=== PATIENT | female | born 1940 | race Caucasian/White ===

== ENCOUNTER 2021-11-09 07:29 | Inpatient (IN) ==
[~2021-11-09 07:29] MED LIST: Povidone-Iodine 45 ML, Sodium Chloride IRRigation 1,000 ML IR ONE; TOTAL JOINT MIXTURE (100ML) INTRAART ONE
[2021-11-09] MEDS ORDERED: *HR* Labetalol 20 MG/4 ML SYRINGE IVP PRN (08:17)
[2021-11-09] MEDS ORDERED: *HR* OxyCODONE Immed Rel 5 MG TABLET PO PRN ×3 (08:17→13:40)
[2021-11-09] MEDS ORDERED: *HR* HYDROmorphone PF 0.5 MG/0.5 ML SYRINGE IVP PRN (08:17)
[2021-11-09] MEDS ORDERED: CeFAZolin Syr 2,000MG/20 ML 2,000 MG/20 ML SYRINGE IVPB ONE (08:17)
[2021-11-09] MEDS ORDERED: Ondansetron 4 MG/2 ML VIAL IVP PRN ×3 (08:17→13:40)
[2021-11-09] MEDS ORDERED: Ringers Solution, Lactated 1,000 ML IVC SCH ×2 (08:30→12:30)
[2021-11-09] MEDS ORDERED: Famotidine 20 MG/2 ML VIAL IVP ONE (09:00)
[2021-11-09] MEDS ORDERED: Pregabalin 75 MG CAPSULE PO ONE (09:00)
[2021-11-09] MEDS ORDERED: Acetaminophen IV 1,000 MG/100 ML BAG IVPB ONE (09:00)
[2021-11-09] MEDS ORDERED: EPINEPHrine 1 MG/ML VIAL ONE (09:12)
[2021-11-09] MEDS ORDERED: Vancomycin 1,000 MG VIAL ONE (09:43)
[2021-11-09] MEDS ORDERED: *HR* FentaNYL (PF) 100 MCG/2 ML VIAL ONE (09:44)
[2021-11-09] MEDS ORDERED: Vancomycin 1,250 MG/262.5 ML IV.SOLN IVPB ONE ×2 (10:00→15:00)
[2021-11-09] MEDS ORDERED: Lidocaine -MPF 2% 5 ML VIAL ONE (10:16)
[2021-11-09] MEDS ORDERED: Ondansetron 4 MG/2 ML VIAL ONE (10:20)
[2021-11-09] MEDS ORDERED: Tranexamic Acid 1,000 MG/10 ML VIAL ONE ×2 (10:41→11:59)
[2021-11-09] MEDS ORDERED: *HR* Phenylephrine 10 MG/ML VIAL ONE (11:11)
[2021-11-09] MEDS ORDERED: Naloxone 0.4 MG/ML INJ IVP PRN ×2 (12:18→13:40)
[2021-11-09] MEDS ORDERED: MOM Conc 10 ML UD.LIQ PO PRN ×2 (12:18→13:40)
[2021-11-09] MEDS ORDERED: Sennosides 8.6 MG TABLET PO PRN ×2 (12:18→13:40)
[2021-11-09] MEDS ORDERED: *HR* Promethazine 25 MG/ML VIAL IM PRN ×2 (12:18→13:40)
[2021-11-09] MEDS ORDERED: *HR* Dextrose 50 % in Water (Syg) 50 ML SYRINGE IVP PRN (13:40)
[2021-11-09] MEDS ORDERED: Dextrose Gel 15 GM/37.5 ML TUBE PO PRN ×2 (13:40)
[2021-11-09] MEDS ORDERED: D5% in Water 1,000 ML IVC PRN (13:40)
[2021-11-09] MEDS: CeFAZolin 2 GM/120 ML BAG IVPB SCH ×2 (14:57→23:47)
[2021-11-09] MEDS: Pregabalin 75 MG CAPSULE PO SCH ×2 (14:57→22:23)
[2021-11-09] MEDS ORDERED: Pregabalin 75 MG CAPSULE PO SCH (15:00)
[2021-11-09] MEDS ORDERED: CeFAZolin 2 GM/120 ML BAG IVPB SCH (16:00)
[2021-11-09] MEDS: Ascorbic Acid 500 MG TABLET PO SCH (16:06)
[2021-11-09] MEDS ORDERED: Ascorbic Acid 500 MG TABLET PO SCH (17:00)
[2021-11-09] MEDS: Insulin LISPRO 300 UNITS/3 ML VIAL SUBQ SCH (17:09)
[2021-11-09] MEDS ORDERED: 0.9 % Sodium Chloride 1,000 ML IV ONE (18:32)
[2021-11-09] MEDS ORDERED: rOPINIRole 1 MG TABLET PO SCH ×2 (21:00)
[2021-11-09] MEDS: Ringers Solution, Lactated 1,000 ML IVC SCH (22:23)
[2021-11-10 07:55] LABS: Basophils % 0.4 %; Eosinophils # 0.4 K/mcL (0.0-0.6); Eosinophils % 4.9 %; Hematocrit 32.2 % (35.3-44.9); Hemoglobin 10.2 g/dL (11.5-15.4); Immature Granulocytes % 0.2 % (0-4); Lymphocytes # 1.6 K/mcL (0.6-4.6); Lymphocytes % 18.8 %; Mean Corpuscular HGB Conc 31.7 g/dL (31.6-35.5); Mean Corpuscular Hemoglobin 31.8 pg (28.0-33.3); Mean Corpuscular Volume 100.3 fL (83.0-100.0); Mean Platelet Volume 12.3 fL (9.4-12.4); Monocytes # 0.6 K/mcL (0.0-1.3); Monocytes % 7.6 %; Neutrophils # 5.7 K/mcL (1.6-8.9); Platelet Count 139 K/mcL (140-400); Red Blood Count 3.21 M/mcL (3.82-4.97); Red Cell Distribution Width 14.3 % (11.5-14.5); Segmented Neutrophils % 68.1 %; White Blood Count 8.3 K/mcL (4.3-11.1)
[2021-11-10 08:14] LABS: Calcium 8.3 mg/dL (8.6-10.3); Potassium 4.6 mEq/L (3.5-5.1)
[2021-11-10] MEDS: Ringers Solution, Lactated 1,000 ML IVC SCH (08:15)
[2021-11-10] MEDS: Insulin LISPRO 300 UNITS/3 ML VIAL SUBQ SCH ×3 (08:18→18:07)
[2021-11-10] MEDS ORDERED: 0.9 % Sodium Chloride 1,000 ML IVC ONE ×2 (08:38→10:58)
[2021-11-10] MEDS ORDERED: Cholecalciferol (D-3) 1,000 UNIT (25MCG) TABLET PO SCH (09:00)
[2021-11-10] MEDS ORDERED: Multivit/Ca/Min/Fe/FA 1 TAB TABLET PO SCH (09:00)
[2021-11-10] MEDS ORDERED: lisinopriL 5 MG TABLET PO SCH ×2 (09:00)
[2021-11-10] MEDS: Pregabalin 75 MG CAPSULE PO SCH (09:16)
[2021-11-10] MEDS: Cholecalciferol (D-3) 1,000 UNIT (25MCG) TABLET PO SCH (09:16)
[2021-11-10] MEDS: Ascorbic Acid 500 MG TABLET PO SCH ×2 (09:16→18:08)
[2021-11-10] MEDS: Multivit/Ca/Min/Fe/FA 1 TAB TABLET PO SCH (09:16)
[2021-11-10] MEDS ORDERED: 0.9 % Sodium Chloride 1,000 ML ONE (10:55)
[2021-11-10 11:24] LABS: ABG Base Excess -1 mEq/L (-2 to 3); ABG HCO3 24 mEq/L (21-27); ABG Oxygen Saturation 96 % (95-98); ABG PCO2 43 mmHg (35-45); ABG PH 7.36 pH Units (7.32-7.45); ABG PO2 84 mmHg (85-104); ABG TCO2 26 mEq/L (20-26)
[2021-11-10] MEDS ORDERED: Perflutren Lipid Microsphere 1.3 ML in 0.9 % Sodium Chloride 8.7 ML IVP PRN ×2 (11:24→11:41)
[2021-11-10] MEDS ORDERED: *HR* Heparin 5,000 UNIT/ML VIAL IVP PRN ×2 (11:41)
[2021-11-10] MEDS ORDERED: *HR* Heparin 5,000 UNIT/ML VIAL IVP ONE (11:41)
[2021-11-10 11:43] LABS: Hematocrit 30.6 % (35.3-44.9); Hemoglobin 9.4 g/dL (11.5-15.4); Immature Granulocytes % 0.3 % (0-4); Lymphocytes % 24.7 %; Mean Corpuscular HGB Conc 30.7 g/dL (31.6-35.5); Mean Corpuscular Hemoglobin 30.8 pg (28.0-33.3); Mean Corpuscular Volume 100.3 fL (83.0-100.0); Mean Platelet Volume 12.3 fL (9.4-12.4); Platelet Count 130 K/mcL (140-400); Red Blood Count 3.05 M/mcL (3.82-4.97); Red Cell Distribution Width 14.4 % (11.5-14.5); Segmented Neutrophils % 63.5 %; White Blood Count 7.6 K/mcL (4.3-11.1)
[2021-11-10 11:44] LABS: Basophils % 0.3 %; Eosinophils # 0.4 K/mcL (0.0-0.6); Eosinophils % 5.5 %; Lymphocytes # 1.9 K/mcL (0.6-4.6); Monocytes # 0.4 K/mcL (0.0-1.3); Monocytes % 5.7 %; Neutrophils # 4.8 K/mcL (1.6-8.9)
[2021-11-10] MEDS ORDERED: Heparin 25,000UNIT/250ML 1/2NS 25,000 UNIT/250 ML IV.SOLN IVC SCH (11:45)
[2021-11-10] MEDS: Norepinephrine 4 MG/254 ML IV.SOLN IVC SCH (11:50)
[2021-11-10 12:10] LABS: BUN/Creatinine Ratio 11 (6-26); Blood Urea Nitrogen 17 mg/dL (8-23); Calcium 7.7 mg/dL (8.6-10.3); Carbon Dioxide 29 mEq/L (23-29); Chloride 110 mEq/L (98-107); Glucose 130 mg/dL (70-105); Osmolality,Calculated 293 (280-300); Potassium 4.1 mEq/L (3.5-5.1); Sodium 140 mEq/L (136-145); Troponin I < 0.03 ng/mL (< 0.04); eGFR For African Americans 41 (> 60); eGFR For Non-African Americans 34 (> 60)
[2021-11-10] MEDS: 0.9 % Sodium Chloride 1,000 ML IVC SCH ×2 (12:18→18:25)
[2021-11-10] MEDS ORDERED: Aspirin Enteric Coated 81 MG Tablet PO SCH (12:20)
[2021-11-10 13:44] LABS: Hemoglobin 10.2 g/dL (11.5-15.4); Mean Corpuscular HGB Conc 30.9 g/dL (31.6-35.5); Mean Corpuscular Hemoglobin 31.3 pg (28.0-33.3); Mean Corpuscular Volume 101.2 fL (83.0-100.0); Mean Platelet Volume 12.3 fL (9.4-12.4); Platelet Count 138 K/mcL (140-400); Red Blood Count 3.26 M/mcL (3.82-4.97); Red Cell Distribution Width 14.4 % (11.5-14.5); White Blood Count 9.5 K/mcL (4.3-11.1)
[2021-11-10] MEDS ORDERED: Isovue-370 500 ML BOTTLE IVP ONE (13:45)
[2021-11-10 13:58] LABS: Heparin anti-factor XA UFH < 0.04 IU/mL (0.30-0.70); INR 1.1; Prothrombin Time 11.7 Seconds (9.4-12.1)
[2021-11-10] MEDS ORDERED: Albumin Human 5% 0 GM/0 ML IV.SOLN ONE (16:07)
[2021-11-10] MEDS: Aspirin Enteric Coated 81 MG Tablet PO SCH ×2 (16:49→21:07)
[2021-11-10 17:26] LABS: Hematocrit 32.3 % (35.3-44.9)
[2021-11-10] MEDS ORDERED: Apixaban 5 MG TABLET PO SCH (21:00)
[2021-11-10] MEDS ORDERED: Pregabalin 75 MG CAPSULE PO SCH (21:00)
[2021-11-10] MEDS: predniSONE 20 MG TABLET PO SCH ×2 (21:09→21:11)
[2021-11-10 22:48] LABS: Hematocrit 32.1 % (35.3-44.9); Hemoglobin 9.9 g/dL (11.5-15.4)
[2021-11-11] MEDS: 0.9 % Sodium Chloride 1,000 ML IVC SCH (02:21)
[2021-11-11] MEDS: Norepinephrine 4 MG/254 ML IV.SOLN IVC SCH (02:25)
[2021-11-11] MEDS: predniSONE 20 MG TABLET PO SCH ×3 (04:11→10:10)
[2021-11-11 04:45] LABS: Basophils % 0.3 %; Eosinophils # 0.3 K/mcL (0.0-0.6); Eosinophils % 3.7 %; Hematocrit 30.9 % (35.3-44.9); Hemoglobin 9.8 g/dL (11.5-15.4); Immature Granulocytes % 0.4 % (0-4); Lymphocytes # 0.6 K/mcL (0.6-4.6); Lymphocytes % 7.2 %; Mean Corpuscular HGB Conc 31.7 g/dL (31.6-35.5); Mean Corpuscular Hemoglobin 31.7 pg (28.0-33.3); Mean Platelet Volume 12.2 fL (9.4-12.4); Monocytes # 0.3 K/mcL (0.0-1.3); Monocytes % 3.6 %; Neutrophils # 6.6 K/mcL (1.6-8.9); Platelet Count 103 K/mcL (140-400); Red Blood Count 3.09 M/mcL (3.82-4.97); Red Cell Distribution Width 14.3 % (11.5-14.5); Segmented Neutrophils % 84.8 %; White Blood Count 7.7 K/mcL (4.3-11.1)
[2021-11-11 05:04] LABS: BUN/Creatinine Ratio 13 (6-26); Blood Urea Nitrogen 14 mg/dL (8-23); Calcium 7.8 mg/dL (8.6-10.3); Carbon Dioxide 25 mEq/L (23-29); Chloride 113 mEq/L (98-107); Glucose 157 mg/dL (70-105); Osmolality,Calculated 296 (280-300); Potassium 4.1 mEq/L (3.5-5.1); Sodium 141 mEq/L (136-145); eGFR For African Americans > 60 (> 60); eGFR For Non-African Americans 51 (> 60)
[2021-11-11] MEDS: Cholecalciferol (D-3) 1,000 UNIT (25MCG) TABLET PO SCH (08:03)
[2021-11-11] MEDS: Aspirin Enteric Coated 81 MG Tablet PO SCH ×2 (08:03→20:51)
[2021-11-11] MEDS: Multivit/Ca/Min/Fe/FA 1 TAB TABLET PO SCH (08:04)
[2021-11-11] MEDS: Ascorbic Acid 500 MG TABLET PO SCH ×2 (08:04→17:22)
[2021-11-11] MEDS: Insulin LISPRO 300 UNITS/3 ML VIAL SUBQ SCH ×3 (08:04→17:24)
[2021-11-11 09:09] LABS: Thyroid Stimulating Hormone 0.409 mcIU/mL (0.340-5.600)
[2021-11-11 15:29] LABS: Hematocrit 30.4 % (35.3-44.9); Hemoglobin 9.6 g/dL (11.5-15.4)
[2021-11-11] MEDS ORDERED: Naloxone 0.4 MG/ML INJ IVP PRN (15:33)
[2021-11-11] MEDS ORDERED: Dextrose Gel 15 GM/37.5 ML TUBE PO PRN ×2 (15:33)
[2021-11-11] MEDS ORDERED: MOM Conc 10 ML UD.LIQ PO PRN (15:33)
[2021-11-11] MEDS ORDERED: D5% in Water 1,000 ML IVC PRN (15:33)
[2021-11-11] MEDS ORDERED: Ondansetron 4 MG/2 ML VIAL IVP PRN (15:33)
[2021-11-11] MEDS ORDERED: *HR* Dextrose 50 % in Water (Syg) 50 ML SYRINGE IVP PRN (15:33)
[2021-11-11] MEDS ORDERED: Sennosides 8.6 MG TABLET PO PRN (15:33)
[2021-11-11] MEDS: *HR* Rivaroxaban 10 MG TABLET PO SCH (20:50)
[2021-11-12 06:19] LABS: VBG Ionized Calcium 1.24 mmol/L (1.15-1.35)
[2021-11-12 06:26] LABS: Basophils % 0.1 %; Hematocrit 27.2 % (35.3-44.9); Immature Granulocytes % 0.9 % (0-4); Lymphocytes # 0.8 K/mcL (0.6-4.6); Lymphocytes % 6.3 %; Mean Corpuscular HGB Conc 33.1 g/dL (31.6-35.5); Mean Corpuscular Hemoglobin 31.8 pg (28.0-33.3); Mean Corpuscular Volume 96.1 fL (83.0-100.0); Mean Platelet Volume 12.3 fL (9.4-12.4); Monocytes # 0.7 K/mcL (0.0-1.3); Monocytes % 5.6 %; Neutrophils # 10.5 K/mcL (1.6-8.9); Platelet Count 132 K/mcL (140-400); Red Blood Count 2.83 M/mcL (3.82-4.97); Red Cell Distribution Width 14.1 % (11.5-14.5); Segmented Neutrophils % 87.1 %
[2021-11-12 06:48] LABS: Albumin 2.9 g/dL (3.5-5.7); Albumin/Globulin Ratio 1.5 (1.1-2.2); Bilirubin,Total 0.5 mg/dL (0.3-1.0); Calcium 8.6 mg/dL (8.6-10.3); Magnesium 1.7 mg/dL (1.6-2.6); Phosphorous 1.4 mg/dL (2.7-4.5); Potassium 4.1 mEq/L (3.5-5.1); Total Protein 4.9 g/dL (6.4-8.9)
[2021-11-12] MEDS ORDERED: Cyanocobalamin (B-12) 1,000 MCG/ML VIAL IM ONE (08:30)
[2021-11-12] MEDS: Aspirin Enteric Coated 81 MG Tablet PO SCH ×2 (09:32→21:08)
[2021-11-12] MEDS: Cholecalciferol (D-3) 1,000 UNIT (25MCG) TABLET PO SCH (09:32)
[2021-11-12] MEDS: Ascorbic Acid 500 MG TABLET PO SCH ×2 (09:32→14:33)
[2021-11-12] MEDS: Multivit/Ca/Min/Fe/FA 1 TAB TABLET PO SCH (09:32)
[2021-11-12] MEDS: Insulin LISPRO 300 UNITS/3 ML VIAL SUBQ SCH ×3 (09:34→18:52)
[2021-11-12] MEDS ORDERED: Azithromycin 500 MG in 0.9 % Sodium Chloride 250 ML IVPB SCH (13:00)
[2021-11-12] MEDS: Metoprolol XL (24 HR) Succ 25 MG TAB.ER.24H PO SCH (14:33)
[2021-11-12] MEDS: cefTRIAXone 1,000 MG in 0.9 % Sodium Chloride Mini Bag 100 ML IVP SCH (14:41)
[2021-11-12] MEDS: *HR* Rivaroxaban 10 MG TABLET PO SCH (21:07)
[2021-11-12] MEDS ORDERED: *HR* Metoprolol 5 MG/5 ML VIAL IVP ONE (23:30)
[2021-11-13 05:10] LABS: Hematocrit 29.3 % (35.3-44.9); Hemoglobin 9.4 g/dL (11.5-15.4); Mean Corpuscular HGB Conc 32.1 g/dL (31.6-35.5); Mean Corpuscular Hemoglobin 31.3 pg (28.0-33.3); Mean Corpuscular Volume 97.7 fL (83.0-100.0); Mean Platelet Volume 12.1 fL (9.4-12.4); Platelet Count 178 K/mcL (140-400); Red Cell Distribution Width 14.7 % (11.5-14.5); White Blood Count 11.8 K/mcL (4.3-11.1)
[2021-11-13 05:26] LABS: Phosphorous 2.2 mg/dL (2.7-4.5)
[2021-11-13 05:33] LABS: BUN/Creatinine Ratio 22 (6-26); Blood Urea Nitrogen 20 mg/dL (8-23); Calcium 7.9 mg/dL (8.6-10.3); Carbon Dioxide 24 mEq/L (23-29); Chloride 109 mEq/L (98-107); Glucose 127 mg/dL (70-105); Osmolality,Calculated 294 (280-300); Sodium 140 mEq/L (136-145); eGFR For African Americans > 60 (> 60); eGFR For Non-African Americans 58 (> 60)
[2021-11-13] MEDS: Doxycycline 100 MG in 0.9 % Sodium Chloride Mini Bag 100 ML IVPB SCH ×2 (06:30→17:02)
[2021-11-13] MEDS: cefTRIAXone 1,000 MG in 0.9 % Sodium Chloride Mini Bag 100 ML IVP SCH (07:33)
[2021-11-13] MEDS: Aspirin Enteric Coated 81 MG Tablet PO SCH ×2 (07:34→21:38)
[2021-11-13] MEDS: Metoprolol XL (24 HR) Succ 25 MG TAB.ER.24H PO SCH (07:34)
[2021-11-13] MEDS: Ascorbic Acid 500 MG TABLET PO SCH ×2 (07:34→17:03)
[2021-11-13] MEDS: Multivit/Ca/Min/Fe/FA 1 TAB TABLET PO SCH (07:34)
[2021-11-13] MEDS: Cholecalciferol (D-3) 1,000 UNIT (25MCG) TABLET PO SCH (07:34)
[2021-11-13] MEDS: Insulin LISPRO 300 UNITS/3 ML VIAL SUBQ SCH ×3 (07:39→17:37)
[2021-11-13] MEDS: Cyanocobalamin (B-12) 1,000 MCG TABLET PO SCH (11:35)
[2021-11-13] MEDS: *HR* Rivaroxaban 10 MG TABLET PO SCH (21:39)
[2021-11-14] MEDS: Doxycycline 100 MG in 0.9 % Sodium Chloride Mini Bag 100 ML IVPB SCH ×2 (06:05→16:58)
[2021-11-14] MEDS: cefTRIAXone 1,000 MG in 0.9 % Sodium Chloride Mini Bag 100 ML IVP SCH (07:35)
[2021-11-14] MEDS: Multivit/Ca/Min/Fe/FA 1 TAB TABLET PO SCH (07:36)
[2021-11-14] MEDS: Metoprolol XL (24 HR) Succ 25 MG TAB.ER.24H PO SCH (07:36)
[2021-11-14] MEDS: Cyanocobalamin (B-12) 1,000 MCG TABLET PO SCH (07:36)
[2021-11-14] MEDS: Ascorbic Acid 500 MG TABLET PO SCH ×2 (07:36→15:06)
[2021-11-14] MEDS: Cholecalciferol (D-3) 1,000 UNIT (25MCG) TABLET PO SCH (07:37)
[2021-11-14] MEDS: Aspirin Enteric Coated 81 MG Tablet PO SCH ×2 (07:37→19:55)
[2021-11-14] MEDS: Insulin LISPRO 300 UNITS/3 ML VIAL SUBQ SCH ×3 (08:48→16:59)
[2021-11-14] MEDS: *HR* Rivaroxaban 10 MG TABLET PO SCH (19:55)
[2021-11-15] MEDS: Doxycycline 100 MG in 0.9 % Sodium Chloride Mini Bag 100 ML IVPB SCH (06:52)
[2021-11-15] MEDS: Aspirin Enteric Coated 81 MG Tablet PO SCH ×2 (08:48→19:32)
[2021-11-15] MEDS: Multivit/Ca/Min/Fe/FA 1 TAB TABLET PO SCH (08:48)
[2021-11-15] MEDS: Cholecalciferol (D-3) 1,000 UNIT (25MCG) TABLET PO SCH (08:48)
[2021-11-15] MEDS: Ascorbic Acid 500 MG TABLET PO SCH ×2 (08:48→17:00)
[2021-11-15] MEDS: Metoprolol XL (24 HR) Succ 25 MG TAB.ER.24H PO SCH (08:48)
[2021-11-15] MEDS: Cyanocobalamin (B-12) 1,000 MCG TABLET PO SCH (08:48)
[2021-11-15] MEDS: cefTRIAXone 1,000 MG in 0.9 % Sodium Chloride Mini Bag 100 ML IVP SCH (08:49)
[2021-11-15] MEDS: Insulin LISPRO 300 UNITS/3 ML VIAL SUBQ SCH ×3 (08:49→17:00)
[2021-11-15] MEDS: *HR* Rivaroxaban 10 MG TABLET PO SCH (19:33)
[2021-11-16] MEDS: Insulin LISPRO 300 UNITS/3 ML VIAL SUBQ SCH ×3 (09:46→17:27)
[2021-11-16] MEDS: Multivit/Ca/Min/Fe/FA 1 TAB TABLET PO SCH (10:08)
[2021-11-16] MEDS: Aspirin Enteric Coated 81 MG Tablet PO SCH ×2 (10:08→20:23)
[2021-11-16] MEDS: Cholecalciferol (D-3) 1,000 UNIT (25MCG) TABLET PO SCH (10:08)
[2021-11-16] MEDS: Cyanocobalamin (B-12) 1,000 MCG TABLET PO SCH (10:09)
[2021-11-16] MEDS: Metoprolol XL (24 HR) Succ 25 MG TAB.ER.24H PO SCH (10:09)
[2021-11-16] MEDS: Ascorbic Acid 500 MG TABLET PO SCH ×2 (11:33→16:00)
[2021-11-16] MEDS: *HR* Rivaroxaban 10 MG TABLET PO SCH (20:22)
[2021-11-17 06:55] VITALS: PULSE 82; TEMP 98.2; O2SAT 94
[2021-11-17] MEDS: Insulin LISPRO 300 UNITS/3 ML VIAL SUBQ SCH (08:44)
[2021-11-17] MEDS: Cyanocobalamin (B-12) 1,000 MCG TABLET PO SCH (09:24)
[2021-11-17] MEDS: Cholecalciferol (D-3) 1,000 UNIT (25MCG) TABLET PO SCH (09:24)
[2021-11-17] MEDS: Multivit/Ca/Min/Fe/FA 1 TAB TABLET PO SCH (09:24)
[2021-11-17] MEDS: Metoprolol XL (24 HR) Succ 25 MG TAB.ER.24H PO SCH (09:24)
[2021-11-17] MEDS: Aspirin Enteric Coated 81 MG Tablet PO SCH (09:24)
[2021-11-17] MEDS: Ascorbic Acid 500 MG TABLET PO SCH (09:24)
[2021-11-17 09:36] VITALS: BP 146/53
[2021-11-17 10:39] LABS: Adenovirus Not Detected (Not Detect); Coronavirus 229E Not Detected (Not Detect); Coronavirus HKU1 Not Detected (Not Detect); Coronavirus NL63 Not Detected (Not Detect); Coronavirus OC43 Not Detected (Not Detect); Human Metapneumovirus Not Detected (Not Detect); Human Rhinovirus/Enterovirus Not Detected (Not Detect); Influenza A Subtype 2009 H1 Not Detected (Not Detect); Influenza B Not Detected (Not Detect); Parainfluenza Virus 1 Not Detected (Not Detect); SARS-CoV-2 Not Detected (Not Detect)
[2021-11-17 10:40] LABS: Bordetella Pertussis Not Detected (Not Detect); Chlamydophila pneumoniae Not Detected (Not Detect); Mycoplasma pneumoniae Not Detected (Not Detect); Parainfluenza Virus 2 Not Detected (Not Detect); Parainfluenza Virus 3 Not Detected (Not Detect); Parainfluenza Virus 4 Not Detected (Not Detect); Respiratory Syncytial Virus Not Detected (Not Detect)
== END 2021-11-17 13:30 | DRG 469 ==
LOC: SDCAOSI 07:29 → 4WAOSI 13:37 → ICNU 11-10 12:08 → 4WAOSI 11-11 16:51
PROVIDERS: ADMIT Orthopaedic Surgery; ATTEND Orthopaedic Surgery

== ENCOUNTER 2022-03-24 12:42 | Inpatient (IN) ==
[2022-03-24] MEDS ORDERED: 0.9 % Sodium Chloride 1,000 ML IVC ONE (16:27)
[2022-03-24] MEDS ORDERED: Piperacillin/Tazobactam 3.375 GM in 0.9 % Sodium Chloride Mini Bag 100 ML IVPB ONE (16:27)
[2022-03-24 17:07] LABS: Hematocrit 42.8 % (35.3-44.9); Hemoglobin 13.4 g/dL (11.5-15.4); Mean Corpuscular HGB Conc 31.3 g/dL (31.6-35.5); Mean Corpuscular Hemoglobin 28.8 pg (28.0-33.3); Mean Platelet Volume 11.1 fL (9.4-12.4); Platelet Count 207 K/mcL (140-400); Red Blood Count 4.65 M/mcL (3.82-4.97); Red Cell Distribution Width 16.4 % (11.5-14.5); White Blood Count 7.3 K/mcL (4.3-11.1)
[2022-03-24 17:15] LABS: Bacteria,Urine Few per hpf (None-Few); Bilirubin,Urine Negative (Negative); Blood,Urine Trace (Negative); Clarity,Urine Turbid (Clear); Color,Urine Light-Yellow (Yellow); Glucose,Urine (UA) Normal (Normal); Ketones,Urine Negative (Negative); Leukocyte Esterase,Urine Large (Negative); Mucus,Urine Few per lpf (None-Few); Nitrite,Urine Positive (Negative); PH,Urine 6.5 pH Units (5.0-8.0); Protein,Urine Trace mg/dL (Neg-Trace); RBC,Urine 0-3 per hpf (0-3); Specific Gravity,Urine 1.014 (1.010-1.025); Squamous Epithelial Cell,Urine Moderate per hpf (None-Few); Urobilinogen,Urine Normal (Normal); WBC,Urine 15-30 per hpf (0-3)
[2022-03-24 17:25] LABS: Calcium 8.6 mg/dL (8.6-10.3); Potassium 3.9 mEq/L (3.5-5.1)
[2022-03-24] MEDS ORDERED: Ertapenem 1,000 MG in 0.9 % Sodium Chloride Mini Bag 100 ML IVPB SCH (19:00)
[2022-03-24] MEDS ORDERED: *HR* HYDROcodone/Acet 5/325 mg TABLET PO PRN (20:00)
[2022-03-24] MEDS ORDERED: Melatonin 3 MG TABLET PO PRN (20:00)
[2022-03-24] MEDS ORDERED: Naloxone 0.4 MG/ML INJ IVP PRN (20:00)
[2022-03-24] MEDS ORDERED: Acetaminophen 325 MG TABLET PO PRN (20:00)
[2022-03-24] MEDS ORDERED: Ondansetron 4 MG/2 ML VIAL IVP PRN (20:00)
[2022-03-24] MEDS ORDERED: Dextrose Gel 15 GM/37.5 ML TUBE PO PRN ×2 (20:02)
[2022-03-24] MEDS ORDERED: *HR* Dextrose 50 % in Water (Syg) 50 ML SYRINGE IVP PRN (20:02)
[2022-03-24] MEDS ORDERED: D5% in Water 1,000 ML IVC PRN (20:02)
[2022-03-24] MEDS: Celecoxib 200 MG CAPSULE PO SCH (22:01)
[2022-03-24] MEDS: Pregabalin 75 MG CAPSULE PO SCH (22:01)
[2022-03-24] MEDS: Insulin LISPRO 300 UNITS/3 ML VIAL SUBQ SCH (22:03)
[2022-03-24] MEDS: methocarbamoL 500 MG TABLET PO SCH (22:08)
[2022-03-25] MEDS ORDERED: Ertapenem 1,000 MG in 0.9 % Sodium Chloride Mini Bag 100 ML IVPB SCH (01:00)
[2022-03-25] MEDS: Ertapenem 1,000 MG in 0.9 % Sodium Chloride Mini Bag 100 ML IVPB SCH (01:24)
[2022-03-25] MEDS: methocarbamoL 500 MG TABLET PO SCH ×3 (05:29→19:37)
[2022-03-25 05:50] LABS: Basophils % 0.4 %; Eosinophils # 0.1 K/mcL (0.0-0.6); Eosinophils % 1.8 %; Hematocrit 39.4 % (35.3-44.9); Hemoglobin 12.4 g/dL (11.5-15.4); Immature Granulocytes % 0.2 % (0-4); Lymphocytes # 1.4 K/mcL (0.6-4.6); Lymphocytes % 28.9 %; Mean Corpuscular HGB Conc 31.5 g/dL (31.6-35.5); Mean Corpuscular Hemoglobin 28.2 pg (28.0-33.3); Mean Corpuscular Volume 89.5 fL (83.0-100.0); Mean Platelet Volume 10.9 fL (9.4-12.4); Monocytes # 0.5 K/mcL (0.0-1.3); Monocytes % 9.3 %; Neutrophils # 2.9 K/mcL (1.6-8.9); Platelet Count 172 K/mcL (140-400); Segmented Neutrophils % 59.4 %; White Blood Count 4.9 K/mcL (4.3-11.1)
[2022-03-25 06:10] LABS: BUN/Creatinine Ratio 23 (6-26); Blood Urea Nitrogen 21 mg/dL (8-23); Calcium 7.9 mg/dL (8.6-10.3); Carbon Dioxide 27 mEq/L (23-29); Chloride 106 mEq/L (98-107); Glucose 93 mg/dL (70-105); Osmolality,Calculated 291 (280-300); Potassium 4.3 mEq/L (3.5-5.1); Sodium 139 mEq/L (136-145); eGFR For African Americans > 60 (> 60); eGFR For Non-African Americans 59 (> 60)
[2022-03-25 08:05] LABS: Magnesium 1.7 mg/dL (1.6-2.6)
[2022-03-25] MEDS: Insulin LISPRO 300 UNITS/3 ML VIAL SUBQ SCH ×4 (08:26→21:18)
[2022-03-25] MEDS: Pregabalin 75 MG CAPSULE PO SCH ×3 (08:27→21:26)
[2022-03-25] MEDS: Celecoxib 200 MG CAPSULE PO SCH ×2 (08:27→21:26)
[2022-03-25] MEDS: lisinopriL 5 MG TABLET PO SCH (08:27)
[2022-03-25] MEDS: Metoprolol XL (24 HR) Succ 25 MG TAB.ER.24H PO SCH (08:27)
[2022-03-26] MEDS: Ertapenem 1,000 MG in 0.9 % Sodium Chloride Mini Bag 100 ML IVPB SCH (00:25)
[2022-03-26 05:01] LABS: A.calcoaceticus-baumannii cplx Not Detected (Not Detect); Bacteroides fragilis by PCR Not Detected (Not Detect); Candida albicans by PCR Not Detected (Not Detect); Candida auris by PCR Not Detected (Not Detect); Candida glabrata by PCR Not Detected (Not Detect); Candida krusei by PCR Not Detected (Not Detect); Candida parapsilosis by PCR Not Detected (Not Detect); Candida tropicalis by PCR Not Detected (Not Detect); Crypto. neoformans/gattii PCR Not Detected (Not Detect); Enterobacter cloacae Cmplx PCR Not Detected (Not Detect); Enterobacterales by PCR Not Detected (Not Detect); Enterococcus faecalis by PCR Not Detected (Not Detect); Enterococcus faecium by PCR Not Detected (Not Detect); Escherichia coli by PCR Not Detected (Not Detect); Klebs. pneumoniae group by PCR Not Detected (Not Detect); Klebsiella aerogenes by PCR Not Detected (Not Detect); Klebsiella oxytoca by PCR Not Detected (Not Detect); Proteus by PCR Not Detected (Not Detect); Pseudomonas aeruginosa by PCR Not Detected (Not Detect); Salmonella species by PCR Not Detected (Not Detect); Serratia marcescens by PCR Not Detected (Not Detect); Staph epidermidis by PCR Not Detected (Not Detect); Staph lugdunensis by PCR Not Detected (Not Detect); Staphylococcus aureus by PCR Not Detected (Not Detect); Staphylococcus by PCR Not Detected (Not Detect); Stenotrophomonas maltophilia Not Detected (Not Detect); Streptococcus agalactiae(B)PCR Not Detected (Not Detect); Streptococcus by PCR Not Detected (Not Detect); Streptococcus pneumoniae PCR Not Detected (Not Detect); Streptococcus pyogenes (A) PCR Not Detected (Not Detect)
[2022-03-26] MEDS: *HR* Enoxaparin 40 MG/0.4 ML SYRINGE SQ SCH (05:02)
[2022-03-26] MEDS: methocarbamoL 500 MG TABLET PO SCH ×3 (05:02→19:52)
[2022-03-26] MEDS: Metoprolol XL (24 HR) Succ 25 MG TAB.ER.24H PO SCH (07:28)
[2022-03-26] MEDS: Celecoxib 200 MG CAPSULE PO SCH ×2 (07:28→21:04)
[2022-03-26] MEDS: lisinopriL 5 MG TABLET PO SCH (07:28)
[2022-03-26] MEDS: Pregabalin 75 MG CAPSULE PO SCH ×3 (07:30→21:03)
[2022-03-26] MEDS: Insulin LISPRO 300 UNITS/3 ML VIAL SUBQ SCH ×4 (07:31→21:03)
[2022-03-26] MEDS: Vancomycin 1,500 MG/265 ML IV.SOLN IVPB SCH (14:11)
[2022-03-27] MEDS: Ertapenem 1,000 MG in 0.9 % Sodium Chloride Mini Bag 100 ML IVPB SCH (00:06)
[2022-03-27] MEDS: methocarbamoL 500 MG TABLET PO SCH ×3 (04:39→20:34)
[2022-03-27] MEDS: *HR* Enoxaparin 40 MG/0.4 ML SYRINGE SQ SCH (04:39)
[2022-03-27 05:49] LABS: Basophils % 0.2 %; Eosinophils # 0.4 K/mcL (0.0-0.6); Eosinophils % 6.4 %; Hematocrit 38.1 % (35.3-44.9); Hemoglobin 11.5 g/dL (11.5-15.4); Immature Granulocytes % 0.3 % (0-4); Lymphocytes # 1.5 K/mcL (0.6-4.6); Lymphocytes % 26.5 %; Mean Corpuscular HGB Conc 30.2 g/dL (31.6-35.5); Mean Corpuscular Hemoglobin 28.7 pg (28.0-33.3); Mean Platelet Volume 11.4 fL (9.4-12.4); Monocytes # 0.5 K/mcL (0.0-1.3); Monocytes % 9.4 %; Neutrophils # 3.3 K/mcL (1.6-8.9); Platelet Count 166 K/mcL (140-400); Red Blood Count 4.01 M/mcL (3.82-4.97); Red Cell Distribution Width 16.3 % (11.5-14.5); Segmented Neutrophils % 57.2 %; White Blood Count 5.7 K/mcL (4.3-11.1)
[2022-03-27 06:03] LABS: BUN/Creatinine Ratio 14 (6-26); Blood Urea Nitrogen 15 mg/dL (8-23); Calcium 8.3 mg/dL (8.6-10.3); Carbon Dioxide 34 mEq/L (23-29); Chloride 104 mEq/L (98-107); Glucose 106 mg/dL (70-105); Magnesium 1.9 mg/dL (1.6-2.6); Osmolality,Calculated 289 (280-300); Phosphorous 3.1 mg/dL (2.7-4.5); Potassium 4.5 mEq/L (3.5-5.1); Sodium 139 mEq/L (136-145); eGFR For African Americans > 60 (> 60); eGFR For Non-African Americans 50 (> 60)
[2022-03-27] MEDS: Insulin LISPRO 300 UNITS/3 ML VIAL SUBQ SCH ×4 (07:23→20:24)
[2022-03-27] MEDS: lisinopriL 5 MG TABLET PO SCH (09:00)
[2022-03-27] MEDS: Metoprolol XL (24 HR) Succ 25 MG TAB.ER.24H PO SCH (09:00)
[2022-03-27] MEDS: Celecoxib 200 MG CAPSULE PO SCH ×2 (09:00→20:34)
[2022-03-27] MEDS: Pregabalin 75 MG CAPSULE PO SCH ×3 (09:00→20:34)
[2022-03-27] MEDS: Vancomycin 1,500 MG/265 ML IV.SOLN IVPB SCH (14:03)
[2022-03-28] MEDS: Ertapenem 1,000 MG in 0.9 % Sodium Chloride Mini Bag 100 ML IVPB SCH (00:12)
[2022-03-28] MEDS: *HR* Enoxaparin 40 MG/0.4 ML SYRINGE SQ SCH (05:10)
[2022-03-28] MEDS: methocarbamoL 500 MG TABLET PO SCH ×3 (05:10→21:22)
[2022-03-28] MEDS: Insulin LISPRO 300 UNITS/3 ML VIAL SUBQ SCH ×4 (07:45→21:03)
[2022-03-28] MEDS: Metoprolol XL (24 HR) Succ 25 MG TAB.ER.24H PO SCH (08:33)
[2022-03-28] MEDS: lisinopriL 5 MG TABLET PO SCH (08:33)
[2022-03-28] MEDS: Celecoxib 200 MG CAPSULE PO SCH ×2 (08:33→21:22)
[2022-03-28] MEDS: Pregabalin 75 MG CAPSULE PO SCH ×3 (08:33→21:22)
[2022-03-28] MEDS: Benzonatate 100 MG CAPSULE PO PRN (12:10)
[2022-03-28 12:59] LABS: BUN/Creatinine Ratio 13 (6-26); Blood Urea Nitrogen 12 mg/dL (8-23); Vancomycin,Trough 11 mcg/mL (5-10); eGFR For African Americans > 60 (> 60); eGFR For Non-African Americans 56 (> 60)
[2022-03-28] MEDS: Vancomycin 1,500 MG/265 ML IV.SOLN IVPB SCH (13:02)
[2022-03-29] MEDS: Ertapenem 1,000 MG in 0.9 % Sodium Chloride Mini Bag 100 ML IVPB SCH (00:54)
[2022-03-29] MEDS: *HR* Enoxaparin 40 MG/0.4 ML SYRINGE SQ SCH (05:03)
[2022-03-29] MEDS: methocarbamoL 500 MG TABLET PO SCH ×2 (05:03→12:08)
[2022-03-29] MEDS: Benzonatate 100 MG CAPSULE PO PRN (05:08)
[2022-03-29 05:44] LABS: Basophils % 0.3 %; Eosinophils # 0.5 K/mcL (0.0-0.6); Eosinophils % 7.2 %; Hematocrit 38.3 % (35.3-44.9); Hemoglobin 11.3 g/dL (11.5-15.4); Immature Granulocytes % 0.4 % (0-4); Lymphocytes # 1.5 K/mcL (0.6-4.6); Lymphocytes % 20.1 %; Mean Corpuscular HGB Conc 29.5 g/dL (31.6-35.5); Mean Corpuscular Hemoglobin 28.2 pg (28.0-33.3); Mean Corpuscular Volume 95.5 fL (83.0-100.0); Mean Platelet Volume 11.5 fL (9.4-12.4); Monocytes # 0.6 K/mcL (0.0-1.3); Monocytes % 8.3 %; Neutrophils # 4.7 K/mcL (1.6-8.9); Platelet Count 179 K/mcL (140-400); Red Blood Count 4.01 M/mcL (3.82-4.97); Red Cell Distribution Width 15.9 % (11.5-14.5); Segmented Neutrophils % 63.7 %; White Blood Count 7.4 K/mcL (4.3-11.1)
[2022-03-29 06:05] LABS: Calcium 8.4 mg/dL (8.6-10.3); Magnesium 1.8 mg/dL (1.6-2.6); Phosphorous 2.9 mg/dL (2.7-4.5); Potassium 4.8 mEq/L (3.5-5.1)
[2022-03-29 06:52] VITALS: O2SAT 91
[2022-03-29] MEDS: Insulin LISPRO 300 UNITS/3 ML VIAL SUBQ SCH ×2 (07:08→11:16)
[2022-03-29] MEDS: Metoprolol XL (24 HR) Succ 25 MG TAB.ER.24H PO SCH (09:04)
[2022-03-29] MEDS: Celecoxib 200 MG CAPSULE PO SCH (09:04)
[2022-03-29] MEDS: Pregabalin 75 MG CAPSULE PO SCH (09:04)
[2022-03-29] MEDS: lisinopriL 5 MG TABLET PO SCH (09:04)
[2022-03-29] MEDS ORDERED: Fosfomycin Tromethamine 3 GM Packet PO ONE (10:00)
[2022-03-29 10:06] VITALS: BP 111/69; PULSE 62; TEMP 97.5
== END 2022-03-29 14:34 | disposition home health service (06) | DRG 689 ==
LOC: EMEROOARM 12:42 → 3BNU 12:42 → SUATTDRO 18:28 → 3BNU 19:45 → SUATTDRO 03-25 09:24
PROVIDERS: ADMIT Internal Medicine; ATTEND Internal Medicine